=== PATIENT | male | born 1985 | race American Indian/Alaskan Native ===

== ENCOUNTER 2017-09-11 18:31 | Observation (INO) | payer OTHER ==
[2017-09-11 18:49] LABS: Basophils # (Auto) 0.1 K/mm3 (0.0-0.1); Basophils % (Auto) 0.7 % (0.0-1.8); Eosinophils # (Auto) 0.2 K/mm3 (0.0-0.4); Eosinophils % (Auto) 1.7 % (0.0-4.3); Hematocrit 47.9 % (35.5-45.6); Hemoglobin 16.1 gm/dl (11.8-15.2); Lymphocytes # (Auto) 4.2 K/mm3 (1.2-5.4); Lymphocytes % (Auto) 32.9 % (13.4-35.0); Mean Corpuscular HGB Conc 34 % (32-34); Mean Corpuscular Hemoglobin 30 pg (28-32); Mean Corpuscular Volume 88 fl (84-94); Monocytes # (Auto) 1.1 K/mm3 (0.0-0.8); Monocytes % (Auto) 8.6 % (0.0-7.3); Platelet Count 320 K/mm3 (140-440); Red Blood Count 5.45 M/mm3 (3.65-5.03); Red Cell Distribution Width 13.7 % (13.2-15.2)
--- NOTE | 2017-09-11 18:56 | Cat Scan Report ---
FINAL REPORT EXAM: CT HEAD/BRAIN WO CON HISTORY: suspected stroke TECHNIQUE: CT examination of the head without IV contrast PRIORS: None. FINDINGS: Right maxillary molar roots extend into the alveolar recess of the right maxillary sinus the paranasal sinuses are otherwise clear as are the mastoid air cells and middle ear cavities. Oblique patient position limits the examination. No acute air-fluid level visualized in the included air-filled sinuses. Bone windows demonstrate no acute fracture. The brain is without mass, mass effect, hemorrhage, or acute infarct. There is no extra-axial intracranial bleed, brain bleed, or midline shift. The ventricles and sulci are age-appropriate. IMPRESSION: No acute CVA, intracranial bleed, or brain mass
--- NOTE | 2017-09-11 18:57 | Emergency Department Report ---
- General Stated complaint: NEURO SYMPTOMS Time Seen by Provider: 09/11/17 18:38 Source: patient, family - History of Present Illness Initial comments: 32-year-old male presents to ED after 45 minutes of left-sided weakness and difficulty with speech, glucose was 200 on arrival stat head CT read as no acute process per radiology, here for eval new onset left and poss r side weakness w/ slurred speech. MD Complaint: focal weakness -: Sudden Severity: mild, moderate Quality: tingling, numbness Consistency: other (improving in ed) Associated Symptoms: denies: chest pain, confusion, dark stools, diaphoresis, dysuria, easy bruising, fever/chills, headaches, loss of appetite, nausea/ vomiting, myalgias, rash, shortness of breath, syncope - Related Data Home Medications Medication Instructions Recorded Confirmed Last Taken No Known Home Medications [No 05/30/13 05/30/13 Unknown Reported Home Medications] Allergies Allergy/AdvReac Type Severity Reaction Status Date / Time No Known Allergies Allergy Verified 05/30/13 05:19 ED Review of Systems ROS: Stated complaint: NEURO SYMPTOMS Other details as noted in HPI Comment: All other systems reviewed and negative Constitutional: denies: diaphoresis, fever, malaise Eyes: denies: eye pain, eye discharge, vision change ENT: denies: ear pain, throat pain, dental pain, hearing loss, epistaxis Respiratory: denies: cough, orthopnea, shortness of breath, SOB with exertion, SOB at rest, stridor Cardiovascular: denies: chest pain, palpitations, dyspnea on exertion, orthopnea , edema, syncope Gastrointestinal: denies: abdominal pain, nausea, vomiting, diarrhea, constipation, hematemesis, melena, hematochezia Genitourinary: denies: frequency, hematuria, discharge, testicular pain, testicular mass Musculoskeletal: denies: arthralgia, myalgia Skin: denies: pruritus Neurological: weakness, numbness, other (slurred speech and weakness). denies: vertigo Psychiatric: denies: anxiety, depression, auditory hallucinations, visual hallucinations, homicidal thoughts ED Past Medical Hx - Past Medical History Hx Hypertension: No Hx Seizures: No Hx Kidney Stones: Yes Hx Asthma: No - Social History Smoking Status: Current Every Day Smoker - Medications Home Medications: Home Medications Medication Instructions Recorded Confirmed Last Taken Type No Known Home Medications [No 05/30/13 05/30/13 Unknown History Reported Home Medications] ED Physical Exam - General Limitations: Other (slurred speech) General appearance: alert - Head Head exam: Present: atraumatic, normocephalic - Eye Eye exam: Present: normal appearance, PERRL, EOMI - ENT ENT exam: Present: normal exam, normal orophraynx - Neck Neck exam: Present: normal inspection. Absent: tenderness, meningismus - Respiratory Respiratory exam: Present: normal lung sounds bilaterally. Absent: respiratory distress, wheezes, rales, rhonchi, stridor, accessory muscle use, prolonged expiratory - Cardiovascular Cardiovascular Exam: Present: normal rhythm, tachycardia, normal heart sounds. Absent: systolic murmur, diastolic murmur, rubs, gallop - GI/Abdominal GI/Abdominal exam: Present: soft. Absent: distended, tenderness, guarding, rebound, rigid, mass, bruit, pulsatile mass - Extremities Exam Extremities exam: Present: normal inspection. Absent: normal capillary refill, pedal edema, joint swelling, calf tenderness - Back Exam Back exam: Present: normal inspection. Absent: CVA tenderness (R), CVA tenderness (L), muscle spasm, paraspinal tenderness, vertebral tenderness - Neurological Exam Neurological exam: Present: alert, motor sensory deficit, other (slurred speech left greater than right upper extremity weakness) - Psychiatric Psychiatric exam: Present: normal affect, anxious. Absent: manic, homicidal ideation, suicidal ideation - Assessment Assessment Interval: Baseline - Level of Consciousness 1a. Level of Consciousness: alert - LOC Questions 1b. LOC Questions: answers no questions correctly - LOC Command 1c. LOC Commands: performs 1 task correctly - Best Gaze 2. Best Gaze: normal - Visual 3. Visual: no visual loss - Facial Palsy 4. Facial Palsy: minor paralysis - Motor Arm 5b. Motor Arm Right: no drift 5a. Motor Arm Left: drift - Motor Leg 6a. Motor Leg Left: some gravity effort 6b. Motor Leg Right: no drift - Limb Ataxia 7. Limb Ataxia: absent - Sensory 8. Sensory: mild/moderate sensory loss - Best Language 9. Best Language: no aphasia - Dysarthria 10. Dysarthria: mild/moderate dysarthria - Extinction and Inattention 11. Extinction/Inattention: visual/tactile inattention - Scoring Total Score: 10 Stroke Severity: Moderate Stroke ED Course Vital Signs 09/11/17 09/11/17 19:10 19:30 Temperature 99.1 F Pulse Rate 125 H Respiratory 18 Rate Blood Pressure 133/76 [Left] O2 Sat by Pulse 98 Oximetry - Reevaluation(s) Reevaluation #1: 09/11/17 19:33 Case was discussed with on-call neurologist Dr. Deshpande who states patient does seem to have improving deficits possibly bilateral he is recommending TIA workup however he is also recommending CTA angiogram to eval for brainstem tia , doesn't rec tpa at this time given improved symptoms, he did examine pt via video and d/w him the case adn rec for management. 09/11/17 23:00 ED Medical Decision Making - Lab Data Result diagrams: 09/11/17 18:41 09/11/17 18:41 - EKG Data -: EKG Interpreted by Me EKG shows normal: sinus rhythm Rate: tachycardia - EKG Data Interpretation: nonspecific ST-T wave yanira - Radiology Data Radiology results: report reviewed CT brain no acute process - Medical Decision Making Case discussed discussed with Dr. Hebert Rueda for admit on rec of dr deshpande of neuro who rec eval for tia work up, sx are improved in ed, but will need further eval tia and poss brainstem tia, cta is pending, no tpa at [place] time given improving deficits per dr deshpande, but pt for admit to hospitalist service. Critical Care Time: Yes Critical care time in (mins) excluding proc time.: 30 Critical care attestation.: If time is entered above; I have spent that time in minutes in the direct care of this critically ill patient, excluding procedure time. ED Disposition Clinical Impression: Deficit in communication due to slurred speech, Weakness, TIA (transient ischemic attack) Disposition: DC-09 OP ADMIT IP TO THIS HOSP Is pt being admited?: Yes Condition: Stable Time of Disposition: 23:04
[2017-09-11 19:05] LABS: INR 0.88 (0.87-1.13)
[2017-09-11 19:06] LABS: Partial Thromboplastin Time 31.2 Sec. (24.2-36.6)
[2017-09-11 19:12] LABS: Alanine Aminotransferase 29 units/L (7-56); Albumin 4.1 g/dL (3.9-5); BUN/Creatinine Ratio 11; Blood Urea Nitrogen 11 mg/dL (9-20); Calcium 9.5 mg/dL (8.4-10.2); Hemolysis Index 11
[2017-09-12] MEDS ORDERED: NACL ONE (00:35)
--- NOTE | 2017-09-12 01:47 | Cat Scan Report ---
FINAL REPORT PROCEDURE: CT ANGIO HEAD TECHNIQUE: Computerized tomographic angiography of the head was performed after the IV injection of iodinated nonionic contrast including image processing. The image data was postprocessed using 2-dimensional multiplanar reformatted (MPR) and 3-dimensional (MIP and/or volume rendered) techniques. HISTORY: weakness COMPARISON: No prior studies are available for comparison. FINDINGS: Cerebrum: No evidence of hemorrhage, acute ischemia or mass. Cerebellum: No evidence of hemorrhage, acute ischemia or mass. Subarachnoid spaces and ventricles: Normal. Intracranial vessels: Carotid siphon: Normal. Anterior cerebral: Normal. Middle cerebral: Normal. Posterior cerebral:Normal. Vertebral arteries including basilar: Normal. Aneurysms: None. Dural sinuses: Normal. IMPRESSION: Normal Examination.
[2017-09-12] MEDS ORDERED: ZOFRAN IV PRN (02:09)
[2017-09-12] MEDS ORDERED: APRESOLINE IV PRN (02:09)
[2017-09-12] MEDS ORDERED: PROVENTIL IH PRN (02:09)
[2017-09-12] MEDS ORDERED: PERCOCET 5/325 PO PRN (02:09)
[2017-09-12] MEDS ORDERED: DULCOLAX PR PRN (02:09)
[2017-09-12] MEDS ORDERED: D50W (25GM) Syringe IV PRN (02:09)
[2017-09-12] MEDS ORDERED: SODIUM CHLORIDE FLUSH SYRINGE 10 ML IV PRN (02:09)
[2017-09-12] MEDS ORDERED: MILK OF MAGNESIA PO PRN (02:09)
[2017-09-12] MEDS ORDERED: TYLENOL PO PRN (02:09)
[2017-09-12] MEDS ORDERED: AMBIEN PO PRN (02:09)
[2017-09-12] MEDS ORDERED: MORPHINE IV PRN (02:31)
--- NOTE | 2017-09-12 02:31 | History and Physical Report ---
History of Present Illness Date of examination: 09/12/17 Chief complaint: Left-sided and face tingling and numbness and weakness, confusion and slurred speech History of present illness: 32-year-old male presents to ED after 45 minutes of left-sided weakness and difficulty with speech, glucose was 200 on arrival stat head CT read as no acute process per radiology, here for eval new onset left and poss r side weakness w/ slurred speech. Past History Past Medical History: diabetes, hypertension Past Surgical History: No surgical history Social history: Lives alone, smoking, full code Family history: no significant family history Medications and Allergies Allergies Allergy/AdvReac Type Severity Reaction Status Date / Time No Known Allergies Allergy Verified 05/30/13 05:19 Home Medications Medication Instructions Recorded Confirmed Last Taken Type No Known Home Medications [No 05/30/13 05/30/13 Unknown History Reported Home Medications] Active Meds: Active Medications Acetaminophen (Tylenol) 650 mg PO Q4H PRN PRN Reason: Pain MILD(1-3)/Fever >100.5/LEGER Albuterol (Proventil) 2.5 mg IH Q4HRT PRN PRN Reason: Shortness Of Breath Aspirin (Aspirin) 325 mg PO QDAY SANDRA Bisacodyl (Dulcolax) 10 mg CO QDAY PRN PRN Reason: Constipation unrelieved by MOM Dextrose (D50w (25gm) Syringe) 50 ml IV PRN PRN PRN Reason: Hypoglycemia Enoxaparin Sodium (Lovenox) 40 mg SUB-Q QDAY SANDRA Famotidine (Pepcid) 20 mg PO BID SANDRA Hydralazine HCl (Apresoline) 10 mg IV Q6H PRN PRN Reason: Blood Pressure Sodium Chloride (Nacl 0.45% 1000 Ml) 1,000 mls @ 125 mls/hr IV DIRECT SANDRA Insulin Aspart (Novolog) 0 units SUB-Q ACHS SANDRA PRN Reason: Protocol Magnesium Hydroxide (Milk Of Magnesia) 30 ml PO Q4H PRN PRN Reason: Constipation Morphine Sulfate (Morphine) 2 mg IV Q4H PRN PRN Reason: Pain, Moderate (4-6) Ondansetron HCl (Zofran) 4 mg IV Q8H PRN PRN Reason: N/V unrelieved by Reglan Oxycodone/Acetaminophen (Percocet 5/325) 1 tab PO Q6H PRN PRN Reason: Pain, Moderate (4-6) Potassium Chloride (K-Dur) 20 meq PO QDAY SANDRA Sodium Chloride (Sodium Chloride Flush Syringe 10 Ml) 10 ml INJ PRN PRN PRN Reason: LINE FLUSH Zolpidem Tartrate (Ambien) 5 mg PO QHS PRN PRN Reason: Insomnia Review of Systems All systems: negative Exam - Physical Exam Narrative exam: General: the patient is awake alert oriented to time place and person. no evidence of acute distress HEENT: Head is atraumatic normocephalic,. Pupils equal round reactive to light and accommodation, extraocular movements intact. Oral mucosa moist. Oropharynx clear. No pharyngeal erythema or tonsillar exudate. Neck: Supple no JVD no thyromegaly or lymphadenopathy. Heart: Regular rate and rhythm no murmurs or gallops. S1 and S2 normal. PMI not displaced. Lungs: Clear to auscultation bilaterally. No rales rhonchi wheezing. Nonlabored breathing. Normal chest wall expansion. Abdomen: Soft, nondistended, and nontender. Normoactive bowel sounds. No hepatosplenomegaly. No abdominal masses or bruit appreciated. Extremities: No cyanosis/clubbing/ edema. Musculoskeletal: Normal range of movement all joints. No obvious deformity or tenderness to palpation. Normal muscle tone. Back: Normal alignment. No step-off. No midline or paraspinal tenderness. No CVA tenderness. Neurological: Grossly intact and nonfocal. No cerebellar signs. Cranial nerves II-12 grossly intact. Strength 5 out of 5 all 4 extremities. Sensations grossly intact. Skin: Warm and dry no rashes or bruises. Psychiatric: Normal mood. Appropriate affect and good insight and judgment. Vascular system: No lymphadenopathy. Distal pulses 2+ bilaterally. - Constitutional Vitals: Temp Pulse Resp BP Pulse Ox 99.1 F 125 H 18 133/76 98 09/11/17 19:10 09/11/17 19:30 09/11/17 19:30 09/11/17 19:30 09/11/17 19:30 Results - Labs CBC & Chem 7: 09/11/17 18:41 09/11/17 18:41 Labs: Laboratory Last Values WBC 12.7 K/mm3 (4.5-11.0) H 09/11/17 18:41 RBC 5.45 M/mm3 (3.65-5.03) H 09/11/17 18:41 Hgb 16.1 gm/dl (11.8-15.2) H 09/11/17 18:41 Hct 47.9 % (35.5-45.6) H 09/11/17 18:41 MCV 88 fl (84-94) 09/11/17 18:41 MCH 30 pg (28-32) 09/11/17 18:41 MCHC 34 % (32-34) 09/11/17 18:41 RDW 13.7 % (13.2-15.2) 09/11/17 18:41 Plt Count 320 K/mm3 (140-440) 09/11/17 18:41 Lymph % (Auto) 32.9 % (13.4-35.0) 09/11/17 18:41 [place] % (Auto) 8.6 % (0.0-7.3) H 09/11/17 18:41 Eos % (Auto) 1.7 % (0.0-4.3) 09/11/17 18:41 Baso % (Auto) 0.7 % (0.0-1.8) 09/11/17 18:41 Lymph # 4.2 K/mm3 (1.2-5.4) 09/11/17 18:41 [place] # 1.1 K/mm3 (0.0-0.8) H 09/11/17 18:41 Eos # 0.2 K/mm3 (0.0-0.4) 09/11/17 18:41 Baso # 0.1 K/mm3 (0.0-0.1) 09/11/17 18:41 Seg Neutrophils % 56.1 % (40.0-70.0) 09/11/17 18:41 Seg Neutrophils # 7.1 K/mm3 (1.8-7.7) 09/11/17 18:41 PT 12.4 Sec. (12.2-14.9) 09/11/17 18:41 INR 0.88 (0.87-1.13) 09/11/17 18:41 APTT 31.2 Sec. (24.2-36.6) 09/11/17 18:41 Thrombin Time 16.0 Sec. (15.1-19.6) 09/11/17 18:41 Sodium 136 mmol/L (137-145) L 09/11/17 18:41 Potassium 3.5 mmol/L (3.6-5.0) L 09/11/17 18:41 Chloride 94.7 mmol/L (98-107) L 09/11/17 18:41 Carbon Dioxide 22 mmol/L (22-30) 09/11/17 18:41 Anion Gap 23 mmol/L 09/11/17 18:41 BUN 11 mg/dL (9-20) 09/11/17 18:41 Creatinine 1.0 mg/dL (0.8-1.5) 09/11/17 18:41 Estimated GFR > 60 ml/min 09/11/17 18:41 BUN/Creatinine Ratio 11 % 09/11/17 18:41 Glucose 251 mg/dL (75-100) H 09/11/17 18:41 POC Glucose 88 (70-105) 09/11/17 23:44 Calcium 9.5 mg/dL (8.4-10.2) 09/11/17 18:41 Total Bilirubin 0.30 mg/dL (0.1-1.2) 09/11/17 18:41 AST 19 units/L (5-40) 09/11/17 18:41 ALT 29 units/L (7-56) 09/11/17 18:41 Alkaline Phosphatase 83 units/L (35-129) 09/11/17 18:41 Troponin T < 0.010 ng/mL (0.00-0.029) 09/11/17 18:41 Total Protein 7.7 g/dL (6.3-8.2) 09/11/17 18:41 Albumin 4.1 g/dL (3.9-5) 09/11/17 18:41 Albumin/Globulin Ratio 1.1 % 09/11/17 18:41 Plasma/Serum Alcohol < 0.01 % (0-0.07) 09/11/17 18:41 - Imaging and Cardiology Imaging and Cardiology: EKG normal sinus rhythm negative for acute ischemia or other arrhythmia CT head negative for acute intracranial process\ CTA head and neck - negative showing no significant stenosis Assessment and Plan Assessment and plan: Assessment and plan - * Left-sided tingling numbness and weakness - most likely TIA but rule out CVA * Hypertension * Diabetes mellitus type 2 uncontrolled * Leukocytosis with low-grade fever no obvious source of infection suspected or found * Tobacco abuse * Hypokalemia Plan - Admitted to medical floor with telemetry for 24-hour observation TIA workup which includes MRI and carotid ultrasound and echocardiogram follow- up results further management pending results Urine culture and sensitivity and CT chest to rule out underlying pneumonia bronchitis and also for colon cancer screening patient smoking more than 2 packs a day for a long time Hold off on empiric antibiotics at this point Monitor CBC and electrolytes replace electrolytes when necessary as per protocol DVT GI prophylaxis as ordered monitor and follow the patient closely When necessary hydralazine fall April blood pressure control Visit hemoglobin A1c and monitor blood sugars with Accu-Cheks every before meals daily at bedtime and cover with sliding scale insulin Patient currently not on any antihypertensive medication Monitor vital signs closely VTE prophylaxis?: Chemical, Mechanical Plan of care discussed with patient/family: Yes
--- NOTE | 2017-09-12 03:19 | Cat Scan Report ---
FINAL REPORT PROCEDURE: CT ANGIO NECK TECHNIQUE: Computerized tomographic angiography of the neck was performed after the IV injection of iodinated nonionic contrast including image processing. The image data was postprocessed using 2-dimensional multiplanar reformatted (MPR) and 3-dimensional (MIP and/or volume rendered) techniques. HISTORY: weakness COMPARISON: No prior studies are available for comparison. Note: Assessment of carotid artery stenosis is based on measurement of the distal internal carotid artery diameter as the denominator for stenosis calculations and the [place] Symptomatic Carotid Endarterectomy Trial (NASCET) stenosis criteria . CPT 3100F FINDINGS: Sinuses: Normal . Non vascular cervical structures: No significant abnormality . Aortic arch: Normal . Right carotid artery: Normal . Left carotid artery: Normal . Vertebral arteries: Normal . IMPRESSION: Normal Examination
[2017-09-12 04:29] LABS: Hematocrit 44.3 % (35.5-45.6); Hemoglobin 14.8 gm/dl (11.8-15.2); Mean Corpuscular HGB Conc 33 % (32-34); Mean Corpuscular Hemoglobin 30 pg (28-32); Mean Corpuscular Volume 89 fl (84-94); Platelet Count 316 K/mm3 (140-440); Red Blood Count 5.01 M/mm3 (3.65-5.03); Red Cell Distribution Width 13.6 % (13.2-15.2)
[2017-09-12 04:57] LABS: Alanine Aminotransferase 28 units/L (7-56); BUN/Creatinine Ratio 12; Blood Urea Nitrogen 11 mg/dL (9-20); Calcium 8.8 mg/dL (8.4-10.2); Hemolysis Index 15
--- NOTE | 2017-09-12 05:08 | Cat Scan Report ---
FINAL REPORT PROCEDURE: CT CHEST WO CON TECHNIQUE: Computerized axial tomography of the chest was performed without contrast material. This study is performed without intravenous contrast and the sensitivity for pathology, including neoplasms, adenopathy, abscess, pulmonary embolism and aortic dissection, is reduced. HISTORY: r/o PNA COMPARISON: No prior studies are available for comparison. TECHNICAL QUALITY: Satisfactory. FINDINGS: Heart and pericardium: Normal. Thoracic aorta: Normal. Pulmonary vasculature: Normal. Lymph nodes: No enlarged thoracic lymph nodes. Lungs: The lungs are clear and expanded. There are no infiltrates, effusions or pneumothoraces.. Pleural space: No effusion, thickening, or pneumothorax. Musculoskeletal structures: No significant abnormality. Upper abdominal structures: No significant abnormality. IMPRESSION: There is no acute cardiopulmonary abnormality. There is no evidence of active pneumonitis..
[2017-09-12 06:45] LABS: Band Neutrophils # (Manual) 2.2 K/mm3; Basophils % (Manual) 0 % (0.0-1.8); Total Cells Counted 100
[2017-09-12 06:46] LABS: Anisocytosis 1+
[2017-09-12] MEDS: NOVOLOG SUB-Q SCH ×4 (07:44→21:30)
--- NOTE | 2017-09-12 09:05 | Event Note ---
Date: 09/12/17 Pt who was admitted today for possible TIA with left sided weak said the the weakness has resolved and strength has returned to normal. [facility] head and neck was normal. Will follow up with other lab studies and management plan for possible TIA.
[2017-09-12] MEDS: PEPCID PO SCH ×2 (11:44→21:29)
[2017-09-12] MEDS: ASPIRIN PO SCH (11:44)
[2017-09-12] MEDS: K-DUR PO SCH (11:44)
[2017-09-12] MEDS: LOVENOX SUB-Q SCH (11:44)
--- NOTE | 2017-09-12 15:39 | Magnetic Resonance Report ---
FINAL REPORT EXAM: MR BRAIN WO CON HISTORY: stroke , weakness TECHNIQUE: Multiplanar multisequence brain MR imaging without IV contrast. PRIORS: Head CT 09/11/2017 and head CTA 09/12/2017 FINDINGS: Slight prominence of fat in the normal size pineal gland is likely developmental variation. The included air filled sinuses contain no acute fluid level. The brain is without mass, mass effect, hemorrhage, or acute infarct. There is no midline shift or brain edema. There are no areas of brain restricted diffusion to suggest an acute ischemic infarct. The ventricles and sulci are age-appropriate. IMPRESSION: No acute CVA or brain mass
[2017-09-12] MEDS: NACL 0.45% 1000 ML 1,000 ML IV SCH (16:37)
[2017-09-12 17:46] LABS: Bilirubin,Urine NEG (Negative); Blood,Urine NEG (Negative); Color,Urine Yellow (Yellow); Nitrite,Urine NEG (Negative); Protein,Urine <15 mg/dL mg/dL (Negative); Urobilinogen,Urine < 2.0 mg/dL (<2.0)
[2017-09-12 17:53] LABS: Benzodiazepines Screen,Urine PRESUMPTIVE NEGATIVE; Cannabinoid Screen,Urine PRESUMPTIVE NEGATIVE; Methadone Screen,Urine PRESUMPTIVE NEGATIVE; Opiate Screen,Urine PRESUMPTIVE NEGATIVE
[2017-09-12 17:54] LABS: Amphetamine Screen,Urine PRESUMPTIVE POSITIVE; Cocaine Screen,Urine PRESUMPTIVE POSITIVE
[2017-09-13] MEDS: NACL 0.45% 1000 ML 1,000 ML IV SCH (04:18)
[2017-09-13 06:14] LABS: Hematocrit 41.9 % (35.5-45.6); Hemoglobin 13.8 gm/dl (11.8-15.2); Mean Corpuscular HGB Conc 33 % (32-34); Mean Corpuscular Hemoglobin 29 pg (28-32); Mean Corpuscular Volume 89 fl (84-94); Platelet Count 322 K/mm3 (140-440); Red Blood Count 4.73 M/mm3 (3.65-5.03); Red Cell Distribution Width 13.5 % (13.2-15.2)
[2017-09-13 06:34] LABS: Alanine Aminotransferase 40 units/L (7-56); BUN/Creatinine Ratio 17; Blood Urea Nitrogen 12 mg/dL (9-20); Calcium 8.6 mg/dL (8.4-10.2); Chol/HDL Ratio 7.35 %; HDL Cholesterol 17 mg/dL (40-59); Hemolysis Index 23; LDL Cholesterol,Direct 68 mg/dL (50-130)
[2017-09-13 06:59] LABS: Basophils % (Manual) 0 % (0.0-1.8); Total Cells Counted 100
[2017-09-13 07:00] LABS: RBC Morphology Normal
[2017-09-13 07:45] VITALS: BP 111/55
[2017-09-13] MEDS: NOVOLOG SUB-Q SCH ×2 (08:00→16:19)
[2017-09-13] MEDS: ASPIRIN PO SCH (11:28)
[2017-09-13] MEDS: LOVENOX SUB-Q SCH (11:29)
[2017-09-13] MEDS: PEPCID PO SCH (11:29)
[2017-09-13] MEDS: K-DUR PO SCH (11:31)
--- NOTE | 2017-09-13 11:50 | Progress Note ---
Subjective Date of service: 09/13/17 Objective - Constitutional Vitals: Vital Signs - 12hr 09/13/17 09/13/17 09/13/17 00:05 04:52 05:16 Temperature 98.4 F 97.3 F L Pulse Rate 71 78 71 Respiratory 20 20 Rate Blood Pressure 117/74 111/55 O2 Sat by Pulse 95 98 Oximetry 09/13/17 10:00 Temperature Pulse Rate Respiratory Rate Blood Pressure O2 Sat by Pulse 98 Oximetry - Labs CBC & Chem 7: 09/13/17 05:46 09/13/17 05:46 Labs: Abnormal lab results 09/12/17 09/12/17 09/12/17 Range/Units 09:25 17:24 22:25 WBC (4.5-11.0) K/mm3 Lymphocytes % (Manual) (13.4-35.0) % Eosinophils % (Manual) (0.0-4.3) % Eosinophils # (Manual) (0.0-0.4) K/mm3 Creatinine (0.8-1.5) mg/dL Glucose (75-100) mg/dL POC Glucose 109 H 128 H (70-105) Hemoglobin A1c (4-6) % Triglycerides (2-149) mg/dL HDL Cholesterol (40-59) mg/dL Urine WBC (Auto) 7.0 H (0.0-6.0) /HPF 09/13/17 09/13/17 09/13/17 Range/Units 05:46 05:46 05:46 WBC 11.2 H (4.5-11.0) K/mm3 Lymphocytes % (Manual) 43.0 H (13.4-35.0) % Eosinophils % (Manual) 6.0 H (0.0-4.3) % Eosinophils # (Manual) 0.7 H (0.0-0.4) K/mm3 Creatinine 0.7 L (0.8-1.5) mg/dL Glucose 132 H (75-100) mg/dL POC Glucose (70-105) Hemoglobin A1c 7.1 H (4-6) % Triglycerides 202 H (2-149) mg/dL HDL Cholesterol 17 L (40-59) mg/dL Urine WBC (Auto) (0.0-6.0) /HPF 09/13/17 Range/Units 07:55 WBC (4.5-11.0) K/mm3 Lymphocytes % (Manual) (13.4-35.0) % Eosinophils % (Manual) (0.0-4.3) % Eosinophils # (Manual) (0.0-0.4) K/mm3 Creatinine (0.8-1.5) mg/dL Glucose (75-100) mg/dL POC Glucose 119 H (70-105) Hemoglobin A1c (4-6) % Triglycerides (2-149) mg/dL HDL Cholesterol (40-59) mg/dL Urine WBC (Auto) (0.0-6.0) /HPF
--- NOTE | 2017-09-13 16:02 | Discharge Summary ---
Providers - Providers Date of Admission: 09/12/17 02:09 Date of discharge: 09/13/17 Attending physician: SYDNEE CINTRON none Primary care physician: [employer] Hospitalization Reason for admission: TIA, uncontroled diabetes mellitus Condition: Stable Pertinent studies: CT head that was normal, CTA of the head, Neck and chest that were normal MRI of the brain charanjit was normal Procedures: none Hospital course: 32-year-old male presents to ED after 45 minutes of left-sided weakness and difficulty with speech, glucose was 200 on arrival stat head CT read as no acute process per radiology, here for eval new onset left and poss r side weakness w/ slurred speech. Patient was commenced on oxygen, aspirin, statins and nuero check on admission. Head on admission was normal. CTangiography of the head neck and chest were unremarkable. MRI of the brain was normal. Weakness of the left upper and lower extremity progressively was resolved. Patient was optimized assessment scale insulin. Patient was advised to quit tobacco use. His symptoms have resolved and MRI and CT scan were normal. He therefore been discharged to f/u with his primary care physician as well as neurologist if symptoms persisted. This discharge plan was explained to the patient and his mother that was in the room during this discharge. Patient was counseled on consistent Carbiohydrate diet as well as tobacco cessation. Disposition: - TO HOME OR SELFCARE Time spent for discharge: 34 min Core Measure Documentation - Palliative Care Palliative Care/ Comfort Measures: Not Applicable - Core Measures Any of the following diagnoses?: none Exam - Physical Exam Narrative exam: Constitutional: Well-nourished well-developed. In no distress Head: Normocephalic atraumatic Eyes: Pupils are equal round and reactive to light Nose: No enlarged turbinates, no septal deviation. Mouth: Moist mucous membranes. Neck: Supple no thyromegaly. No bruit. No JVD Heart: Regular rate and rhythm, S1-S2 abnormal. No rubs murmurs or gallop Lungs: Clear to auscultation bilaterally no rales or rhonchi Abdomen: Soft, nontender. Bowel sound are present. Extremities: No edema no cyanosis and no clubbing. Neuro: Alert oriented Oriented x3. No focal sensory or motor deficit. Skin: No rashes no hyperemic spots Psychiatry: Euthymic. Calm. - Constitutional Vitals: Temp Pulse Resp BP Pulse Ox 97.3 F L 71 20 111/55 98 09/13/17 04:52 09/13/17 05:16 09/13/17 04:52 09/13/17 04:52 09/13/17 10:00 Plan Activity: advance as tolerated Weight Bearing Status: Weight Bear as Tolerated Diet: diabetic Follow up with: PRIMARY CARE, [Primary Care Provider] - 3-5 Days Prescriptions: Aspirin [Aspirin TAB] 325 mg PO QDAY #30 tablet Glimepiride [Amaryl] 4 mg PO QAM #60 tablet Lisinopril 20 mg PO DAILY #30 Lovastatin [Altoprev] 20 mg PO QPM #30 tab.er.24h metFORMIN 1,000 mg PO BID #60
--- NOTE | 2017-09-16 08:28 | Vascular Lab Report ---
CAROTID DUPLEX STUDY: RIGHT PSVEDV CCA PROX: CCA DIST: ICA PROX: ICA MID: ICA DIST: ECA: VERT: LEFT PSVEDV CCA PROX: CCA DIST: ICA PROX: ICA MID: ICA DIST: ECA: VERT: REASON FOR EXAM: Stroke. COMMENTS ON THE RIGHT: Doppler frequency analysis is consistent with 1 to 15 percent diameter reduction of the internal carotid artery. No plaque is seen. The common carotid artery is patent. The external carotid artery is patent. The vertebral artery has antegrade flow. COMMENTS ON THE LEFT: Doppler frequency analysis is consistent with 1 to 15 percent diameter reduction of the internal carotid artery. No plaque is seen. The common carotid artery is patent. The external carotid artery is patent. The vertebral artery has antegrade flow. IMPRESSION: Normal carotid artery study.
== END 2017-09-13 17:05 | disposition home or self-care (01) ==
LOC: ED 18:31 → 3A 09-12 02:09 → 4A 09-12 07:03
PROVIDERS: ADMIT Internal Medicine Geriatric Medicine; ATTEND Family Medicine
DX: R20.2 Paresthesia of skin (principal); R20.0 Anesthesia of skin; E11.65 Type 2 diabetes mellitus with hyperglycemia; D72.829 Elevated white blood cell count, unspecified; R53.1 Weakness; I10 Essential (primary) hypertension; E87.6 Hypokalemia; F17.200 Nicotine dependence, unspecified, uncomplicated
CPT/HCPCS: 36415; 70450; 70496; 70498; 70551; 71250; 80053; 80061; 80307; 81001; 82962; 83036; 83735; 84100; 84484; 85007; 85025; 85610; 85670; 85730; 87086; 93005; 93010; 93306; 93880; 96360; 96361; 96372; 99291; G0378; G0480; J1650; Q9967; 80320

== ENCOUNTER 2019-09-17 18:00 | Emergency (ER) | payer SELFPAY ==
--- NOTE | 2019-09-17 20:33 | Event Note ---
ED Screening Note ED Screening Note: pt presents with flu like symptoms that began this morning states he has headache, generalized body aches +dry cough no fever states he had a couple of episodes of diarrhea no n/v no abd pain no sore throat no ear pain PMHx DM -metformin states his sugar has been normal, last check was 147 per pt no allergies to meds
[2019-09-17 20:34] VITALS: BP 157/87
--- NOTE | 2019-09-17 20:36 | Emergency Department Report ---
Chief Complaint: Upper Respiratory Infection Stated Complaint: FLU SX Time Seen by Provider: 09/17/19 20:28 - HPI History of Present Illness: pt presents with flu like symptoms that began this morning states he has headache, generalized body aches +dry cough no fever states he had a couple of episodes of diarrhea no n/v no abd pain no sore throat no ear pain no SOB no CP no productive cough PMHx DM -metformin states his sugar has been normal, last check was 147 per pt no allergies to meds initial vitals with mildly elevated HR which improved to normal on repeat pt is afebrile on exam: Non toxic appearing, no acute distress atraumatic, normocephalic normal appearance of the eyes, PERRL, EOMI, no periorbital edema or ecchymosis moist mucus membranes normal oropharynx, bilateral cerumen impactions, no sinus ttp regular heart rate and rhythm, no gallops, no rubs, no murmurs breath sounds are clear bilaterally, no w/r/r A&O x4, no focal neuro deficit skin is warm, dry, intact Examination consistent with viral illness No clinical signs or symptoms of pneumonia Patient is not febrile, less likely to be flu Patient has no history of being immune compromised, no lung disease Discussed supportive care and symptomatic treatment and the importance of oral rehydration with patient Patient referred to a primary care physician for reexamination Medical screening examination performed and there is no threat to life or limb at this time Discussed strict return precautions MSE screening note: Focused history and physical exam performed. ED Disposition for MSE Clinical Impression: Viral illness Disposition: MED SCREENING EXAM-LEFT Is pt being admited?: No Does the pt Need Aspirin: No Condition: Stable Instructions: Viral Syndrome (ED) Additional Instructions: please increase your fluid intake. may taken tylenol or ibuprofen as needed for pain. may use mucinex or theraflu over the counter. get plenty of rest. follow up with a primary care doctor in the next 3 days for reexamination. return to the emergency room for any new or worsening symptoms. Referrals: MORGAN BROUSSARD MD [Staff Physician] - 2-3 Days [facility] [Outside] - 2-3 Days [facility] [Outside] - 2-3 Days Forms: Work/School Release Form(ED) Time of Disposition: 20:34 Print Language: VENEZUELAN
== END 2019-09-17 20:49 | disposition left against medical advice (07) ==
LOC: ED 18:00
DX: B34.9 Viral infection, unspecified (principal)
CPT/HCPCS: 99282

== ENCOUNTER 2020-09-28 09:37 | Emergency (ER) | payer SELFPAY ==
--- NOTE | 2020-09-28 10:09 | Emergency Department Report ---
Blank Doc - Documentation Documentation: 35-year-old male that presents with increased urination, thirst with nausea vo miting. 1- This initial assessment/diagnostic orders/clinical plan/ treatment(s) is/are subject to change based on pt's health status, clinical progression and re- assessment by fellow clinical providers in the ED. Further treatment and workup at subsequent clinical provers discretion. Patient/guardians urged not to elope from ED as their condition may be serious if not clinically assessed and man aged. 2-labs 3-UA
[2020-09-28 10:29] LABS: Hematocrit 44.9 % (35.5-45.6); Hemoglobin 15.3 gm/dl (11.8-15.2); Mean Corpuscular HGB Conc 34 % (32-34); Mean Corpuscular Volume 91 fl (84-94); Platelet Count 277 K/mm3 (140-440); Red Blood Count 4.97 M/mm3 (3.65-5.03); Red Cell Distribution Width 13.3 % (13.2-15.2)
[2020-09-28 10:54] LABS: BUN/Creatinine Ratio 11; Blood Urea Nitrogen 9 mg/dL (9-20); Calcium 9.1 mg/dL (8.4-10.2); Hemolysis Index 9
[2020-09-28 10:56] LABS: Alanine Aminotransferase 41 units/L (7-56); Albumin 4.2 g/dL (3.9-5)
[2020-09-28 11:13] LABS: Bilirubin,Direct < 0.2 mg/dL (0-0.2)
[2020-09-28] MEDS ORDERED: SODIUM CHLORIDE 0.9% 1000 ML 1,000 ML IV ONE (11:45)
[2020-09-28] MEDS ORDERED: ONDANSETRON 4 MG/2 ML INJ IV ONE (11:45)
--- NOTE | 2020-09-28 11:50 | Emergency Department Report ---
HPI - General Chief Complaint: Nausea/Vomiting/Diarrhea Time Seen by Provider: 09/28/20 09:55 - HPI HPI: Room 32 The patient is a 35-year-old male present with a chief complaint of nausea vomiting diarrhea. The patient states he got off work last night before going to bed he had eaten a "hot pocket" at 03: 00. The patient states he awakened this morning at 08: 3 0 with cramping abdominal pain nausea vomiting diarrhea. Patient denies history of fever. Patient denies any known sick contacts. ED Past Medical Hx - Past Medical History Previous Medical History?: Yes Hx Diabetes: Yes Hx Kidney Stones: Yes - Surgical History Past Surgical History?: No - Family History Family history: no significant - Social History Smoking Status: Current Some Day Smoker (1 pack/day) Substance Use Type: None (Denies illicit drug use) - Medications Home Medications: Home Medications Medication Instructions Recorded Confirmed Last Taken Type Aspirin 325 mg PO QDAY #30 tablet 09/13/17 Unknown Rx Glimepiride [Amaryl] 4 mg PO QAM #60 tablet 09/13/17 Unknown Rx Lisinopril 20 mg PO DAILY #30 09/13/17 Unknown Rx Lovastatin [Altoprev] 20 mg PO QPM #30 tab.er.24h 09/13/17 Unknown Rx metFORMIN 1,000 mg PO BID #60 09/13/17 Unknown Rx Famotidine [Pepcid] 20 mg PO BID #20 tablet 09/28/20 Unknown Rx Ondansetron [Zofran ODT TAB] 8 mg PO Q8HR #20 tab.rapdis 09/28/20 Unknown Rx traMADoL [Ultram] 50 mg PO Q6HR PRN #10 tablet 09/28/20 Unknown Rx ED Review of Systems ROS: Stated complaint: WEAK/VOMITING/CONSTANT URINE Other details as noted in HPI Constitutional: denies: fever Eyes: denies: eye pain ENT: denies: throat pain Respiratory: no symptoms reported Cardiovascular: denies: chest pain Endocrine: no symptoms reported Gastrointestinal: abdominal pain, nausea, vomiting, diarrhea Genitourinary: denies: dysuria Musculoskeletal: denies: back pain Neurological: denies: headache Physical Exam - Physical Exam Vital Signs: Vital Signs 09/28/20 09:47 Temperature 98.2 F Pulse Rate 84 Respiratory 18 Rate Blood Pressure 145/82 O2 Sat by Pulse 100 Oximetry Physical Exam: GENERAL: The patient is well-developed well-nourished male lying on stretcher not appearing to be in acute distress. [] HEENT: Normocephalic. Atraumatic. Extraocular motions are intact. Patient has moist mucous membranes. NECK: Supple. Trachea midline CHEST/LUNGS: Clear to auscultation. There is no respiratory distress noted. HEART/CARDIOVASCULAR: Regular. There is no tachycardia. There is no gallop rub or murmur. ABDOMEN: Abdomen is soft, with discomfort to palpation in the right upper quadrant and left upper quadrant. There is no rebound or guarding. Patient has normal bowel sounds. There is no abdominal distention. SKIN: There is no rash. There is no edema. There is no diaphoresis. NEURO: The patient is awake, alert, and oriented. The patient is cooperative. The patient has no focal neurologic deficits. The patient has normal speech MUSCULOSKELETAL: There is no evidence of acute injury. ED Course Vital Signs 09/28/20 09:47 Temperature 98.2 F Pulse Rate 84 Respiratory 18 Rate Blood Pressure 145/82 O2 Sat by Pulse 100 Oximetry ED Medical Decision Making - Lab Data Result diagrams: 09/28/20 10:14 09/28/20 10:14 Laboratory Tests 09/28/20 09/28/20 09/28/20 09:49 10:14 10:14 WBC 15.6 H RBC 4.97 Hgb 15.3 H Hct 44.9 MCV 91 MCH 31 MCHC 34 RDW 13.3 Plt Count 277 Lymph # (Auto) Lining Setter Add Manual Diff Complete Total Counted 100 Seg Neuts % (Manual) 47.0 Lymphocytes % (Manual) 45.0 H Monocytes % (Manual) 6.0 Eosinophils % (Manual) 2.0 Nucleated RBC % Not Reportable Seg Neutrophils # Man 7.3 Band Neutrophils # 0.0 Lymphocytes # (Manual) 7.0 H Abs React Lymphs (Man) 0.0 Monocytes # (Manual) 0.9 H Eosinophils # (Manual) 0.3 Basophils # (Manual) 0.0 Metamyelocytes # 0.0 Myelocytes # 0.0 Promyelocytes # 0.0 Blast Cells # 0.0 WBC Morphology Not Reportable Hypersegmented Neuts Not Reportable Hyposegmented Neuts Not Reportable Hypogranular Neuts Not Reportable Smudge Cells Not Reportable Toxic Granulation Not Reportable Toxic Vacuolation Not Reportable Dohle Bodies Not Reportable Pelger-Huet Anomaly Not Reportable Monik Rods Not Reportable Platelet Estimate Consistent w auto Clumped Platelets Not Reportable Plt Clumps, EDTA Not Reportable Large Platelets Not Reportable Giant Platelets Not Reportable Platelet Satelliting Not Reportable Plt Morphology Comment Not Reportable RBC Morphology Normal Dimorphic RBCs Not Reportable Polychromasia Not Reportable Hypochromasia Not Reportable Poikilocytosis Not Reportable Anisocytosis Not Reportable Microcytosis Not Reportable Macrocytosis Not Reportable Spherocytes Not Reportable Pappenheimer Bodies Not Reportable Sickle Cells Not Reportable Target Cells Not Reportable Tear Drop Cells Not Reportable Ovalocytes Not Reportable Helmet Cells Not Reportable [place] Bodies Not Reportable [place] Rings Not Reportable [place] Cells Not Reportable Bite Cells Not Reportable Crenated Cell Not Reportable Elliptocytes Not Reportable Acanthocytes (Spur) Not Reportable Rouleaux Not Reportable Hemoglobin C Crystals Not Reportable Schistocytes Not Reportable Malaria parasites Not Reportable Basil Bodies Not Reportable Hem Pathologist Commnt No VBG pH Sodium 134 L Potassium 3.8 Chloride 98.9 Carbon Dioxide 24 Anion Gap 15 BUN 9 Creatinine 0.8 Estimated GFR > 60 BUN/Creatinine Ratio 11 Glucose 264 H POC Glucose 206 H Calcium 9.1 Total Bilirubin Direct Bilirubin Indirect Bilirubin AST ALT Alkaline Phosphatase Total Protein Albumin Albumin/Globulin Ratio Lipase Urine Color Urine Turbidity Urine pH Ur Specific Gal[place] Urine Protein Urine Glucose (UA) Urine Ketones Urine Blood Urine Nitrite Urine Bilirubin Urine Urobilinogen Ur Leukocyte Esterase Urine WBC (Auto) Urine RBC (Auto) 09/28/20 09/28/20 09/28/20 10:14 10:14 10:14 WBC RBC Hgb Hct MCV MCH MCHC RDW Plt Count Lymph # (Auto) Add Manual Diff Total Counted Seg Neuts % (Manual) Lymphocytes % (Manual) Monocytes % (Manual) Eosinophils % (Manual) Nucleated RBC % Seg Neutrophils # Man Band Neutrophils # Lymphocytes # (Manual) Abs React Lymphs (Man) Monocytes # (Manual) Eosinophils # (Manual) Basophils # (Manual) Metamyelocytes # Myelocytes # Promyelocytes # Blast Cells # WBC Morphology Hypersegmented Neuts Hyposegmented Neuts Hypogranular Neuts Smudge Cells Toxic Granulation Toxic Vacuolation Dohle Bodies Pelger-Huet Anomaly Monik Rods Platelet Estimate Clumped Platelets Plt Clumps, EDTA Large Platelets Giant Platelets Platelet Satelliting Plt Morphology Comment RBC Morphology Dimorphic RBCs Polychromasia Hypochromasia Poikilocytosis Anisocytosis Microcytosis Macrocytosis Spherocytes Pappenheimer Bodies Sickle Cells Target Cells Tear Drop Cells Ovalocytes Helmet Cells [place] Bodies [place] Rings Evert Cells Bite Cells Crenated Cell Elliptocytes Acanthocytes (Spur) Rouleaux Hemoglobin C Crystals Schistocytes Malaria parasites Basil Bodies Hem Pathologist Commnt VBG pH 7.366 Sodium Potassium Chloride Carbon Dioxide Anion Gap BUN Creatinine Estimated GFR BUN/Creatinine Ratio Glucose POC Glucose Calcium Total Bilirubin 0.20 Direct Bilirubin < 0.2 Indirect Bilirubin 0.0 AST 21 ALT 41 Alkaline Phosphatase 95 Total Protein 6.9 Albumin 4.2 Albumin/Globulin Ratio 1.6 Lipase 19 Urine Color Urine Turbidity Urine pH Ur Specific [place] Urine Protein Urine Glucose (UA) Urine Ketones Urine Blood Urine Nitrite Urine Bilirubin Urine Urobilinogen Ur Leukocyte Esterase Urine WBC (Auto) Urine RBC (Auto) 09/28/20 13:40 WBC RBC Hgb Hct MCV MCH MCHC RDW Plt Count Lymph # (Auto) Add Manual Diff Total Counted Seg Neuts % (Manual) Lymphocytes % (Manual) Monocytes % (Manual) Eosinophils % (Manual) Nucleated RBC % Seg Neutrophils # Man Band Neutrophils # Lymphocytes # (Manual) Abs React Lymphs (Man) Monocytes # (Manual) Eosinophils # (Manual) Basophils # (Manual) Metamyelocytes # Myelocytes # Promyelocytes # Blast Cells # WBC Morphology Hypersegmented Neuts Hyposegmented Neuts Hypogranular Neuts Smudge Cells Toxic Granulation Toxic Vacuolation Dohle Bodies Pelger-Huet Anomaly Monik Rods Platelet Estimate Clumped Platelets Plt Clumps, EDTA Large Platelets Giant Platelets Platelet Satelliting Plt Morphology Comment RBC Morphology Dimorphic RBCs Polychromasia Hypochromasia Poikilocytosis Anisocytosis Microcytosis Macrocytosis Spherocytes Pappenheimer Bodies Sickle Cells Target Cells Tear Drop Cells Ovalocytes Helmet Cells [place] Bodies [place] Rings Evert Cells Bite Cells Crenated Cell Elliptocytes Acanthocytes (Spur) Rouleaux Hemoglobin C Crystals Schistocytes Malaria parasites Basil Bodies Hem Pathologist Commnt VBG pH Sodium Potassium Chloride Carbon Dioxide Anion Gap BUN Creatinine Estimated GFR BUN/Creatinine Ratio Glucose POC Glucose Calcium Total Bilirubin Direct Bilirubin Indirect Bilirubin AST ALT Alkaline Phosphatase Total Protein Albumin Albumin/Globulin Ratio Lipase Urine Color Colorless Urine Turbidity Clear Urine pH 6.0 Ur Specific [place] 1.013 Urine Protein <15 mg/dl Urine Glucose (UA) 150 Urine Ketones Neg Urine Blood Neg Urine Nitrite Neg Urine Bilirubin Neg Urine Urobilinogen < 2.0 Ur Leukocyte Esterase Neg Urine WBC (Auto) < 1.0 Urine RBC (Auto) 1.0 - Radiology Data Radiology results: report reviewed (CT abdomen pelvis), image reviewed (CT abdomen pelvis) CT ABDOMEN AND PELVIS WITH CONTRAST HISTORY: Upper abdominal pain, nausea vomiting diarrhea COMPARISON: None. TECHNIQUE: Axial CT images were obtained through the abdomen and pelvis after 100 cc of IV contrast. Sagittal and coronal reformatted images. All CT scans at this location are performed using CT dose reduction for ALARA by means of automated exposure control. FINDINGS: CT ABDOMEN: Lung Bases: Clear. Liver: No significant abnormality. Biliary: No significant abnormality. Spleen: No significant abnormality. Unenlarged. Pancreas: No significant abnormality. Adrenals: No significant abnormality. Kidneys: Solitary bilateral renal stones are identified measuring 3-4 mm. The kidneys and collecting systems are unremarkable otherwise. No ureteral stones or hydronephrosis is detected. Lymphatics: No lymphadenopathy. Vasculature: No significant abnormality. Bowel/Peritoneum: No significant abnormality. No free air. No free fluid. Normal appendix. CT PELVIS: : No significant abnormality. Osseous Structures: No significant abnormality. Additional Findings: None IMPRESSION: No acute inflammatory process. No clear explanation for upper abdominal pain, nausea, vomiting and diarrhea. Bilateral renal stones. No obstruction. Signer Name: Irineo Womack Jr, MD Signed: 09/28/2020 2:35 PM Workstation Name: [id number] - Differential Diagnosis Gastroenteritis, partial small bowel obstruction, Critical care attestation.: If time is entered above; I have spent that time in minutes in the direct care of this critically ill patient, excluding procedure time. ED Disposition Clinical Impression: Acute abdominal pain, Nausea vomiting and diarrhea Disposition: TO HOME OR SELFCARE Is pt being admited?: No Does the pt Need Aspirin: No Condition: Stable Instructions: Nausea and Vomiting, Adult, [id number], Diarrhea, Adult Additional Instructions: Return to the emergency department should you develop worsening symptoms, inability to tolerate food or liquids, high fever or any other concerns Prescriptions: Famotidine [Pepcid] 20 mg PO BID #20 tablet traMADoL [Ultram] 50 mg PO Q6HR PRN #10 tablet PRN Reason: Pain Ondansetron [Zofran ODT TAB] 8 mg PO Q8HR #20 tab.[email or web address] Referrals: PRIMARY CARE, [Primary Care Provider] - 3-5 Days RICHI SOTO MD [Staff Physician] - 3-5 Days Time of Disposition: 15:42
[2020-09-28 12:27] LABS: Total Cells Counted 100
[2020-09-28 12:53] LABS: Platelet Estimate Consistent w Auto; RBC Morphology Normal
[2020-09-28 13:50] LABS: Bilirubin,Urine NEG (Negative); Blood,Urine NEG (Negative); Color,Urine Colorless (Yellow); Protein,Urine <15 mg/dL mg/dL (Negative); Urobilinogen,Urine < 2.0 mg/dL (<2.0); WBC,Urine < 1.0 /HPF (0.0-6.0)
--- NOTE | 2020-09-28 15:40 | Cat Scan Report ---
CT ABDOMEN AND PELVIS WITH CONTRAST HISTORY: Upper abdominal pain, nausea vomiting diarrhea COMPARISON: None. TECHNIQUE: Axial CT images were obtained through the abdomen and pelvis after 100 cc of IV contrast. Sagittal and coronal reformatted images. All CT scans at this location are performed using CT dose re duction for ALARA by means of automated exposure control. FINDINGS: CT ABDOMEN: Lung Bases: Clear. Liver: No significant abnormality. Biliary: No significant abnormality. Spleen: No significant abnormality. Unenlarged. Pancreas: No significant abnormality. Adrenals: No significant abnormality. Kidneys: Solitary bilateral renal stones are identified measuring 3-4 mm. The kidneys and collecting systems are unremarkable otherwise. No ureteral stones or hydronephrosis is detected. Lymphatics: No lymphadenopathy. Vasculature: No significant abnormality. Bowel/Peritoneum: No significant abnormality. No free air. No free fluid. Normal appendix. CT PELVIS: : No significant abnormality. Osseous Structures: No significant abnormality. Additional Findings: None IMPRESSION: No acute inflammatory process. No clear explanation for upper abdominal pain, nausea, vomiting and di arrhea. Bilateral renal stones. No obstruction. Signer Name: Irineo Womack Jr, MD Signed: 09/28/2020 3:35 PM Workstation Name: [id number]
[2020-09-28 16:15] VITALS: BP 149/89
== END 2020-09-28 15:55 | disposition home or self-care (01) ==
LOC: ED 09:37
DX: R10.9 Unspecified abdominal pain (principal); R11.2 Nausea with vomiting, unspecified; R19.7 Diarrhea, unspecified; E11.9 Type 2 diabetes mellitus without complications; F17.200 Nicotine dependence, unspecified, uncomplicated; F12.10 Cannabis abuse, uncomplicated; Z79.899 Other long term (current) drug therapy
CPT/HCPCS: 36415; 74177; 80048; 80076; 81001; 82805; 82962; 83690; 85007; 85025; 96361; 96374; 99284; J2405; J7030; Q9967

== ENCOUNTER 2021-06-07 09:33 | Emergency (ER) | payer SELFPAY ==
[2021-06-07] MEDS ORDERED: ASPIRIN 325 MG TAB PO ONE (10:40)
--- NOTE | 2021-06-07 10:42 | Emergency Department Report ---
ED Chest Pain HPI - General Chief Complaint: Chest Pain Stated Complaint: SHOULDER CHEST PAINS LT Time Seen by Provider: 06/07/21 10:01 Source: patient Mode of arrival: Ambulatory Limitations: No Limitations - History of Present Illness Initial Comments: 35-year-old male, history of diabetes, TIA, presents to ED with chest pain since this morning. Patient reports left-sided chest pain and left shoulder pain, described as tightness, upon waking this morning. He denies any associated shortness of breath, nausea or vomiting, diaphoresis, leg pain or swelling. Patient denies any aggravating or alleviating factors. Patient states pain is improving compared to earlier this morning. Patient reports tobacco use, denies drug use. MD Complaint: chest pain -: This morning Onset: during rest Pain Location: left chest Pain Radiation: LUE Severity: moderate Quality: tightness Consistency: constant, other (Improving) Improves With: nothing Worsens With: nothing re: denies: nausea, vomting, diaphoresis, dyspnea Other Symptoms: denies: cough, fever, syncope, leg swelling Treatments Prior to Arrival: none - Related Data Previous Rx's Medication Instructions Recorded Last Taken Type Aspirin 325 mg PO QDAY #30 tablet 09/13/17 Unknown Rx Glimepiride [Amaryl] 4 mg PO QAM #60 tablet 09/13/17 Unknown Rx Lisinopril 20 mg PO DAILY #30 09/13/17 Unknown Rx Lovastatin [Altoprev] 20 mg PO QPM #30 tab.er.24h 09/13/17 Unknown Rx metFORMIN 1,000 mg PO BID #60 09/13/17 06/07/21 Rx 1000 mg Famotidine [Pepcid] 20 mg PO BID #20 tablet 09/28/20 Unknown Rx Ondansetron [Zofran ODT TAB] 8 mg PO Q8HR #20 tab.rapdis 09/28/20 Unknown Rx traMADoL [Ultram] 50 mg PO Q6HR PRN #10 tablet 09/28/20 Unknown Rx Allergies Allergy/AdvReac Type Severity Reaction Status Date / Time No Known Allergies Allergy Verified 05/30/13 05:19 Heart Score - HEART Score History: Slightly suspicious EKG: Non-specific Age: < 45 Risk factors: > 3 risk factors or hx of atherosclerotic disease Troponin: < normal limit HEART Score: 3 - EKG Read Time Time EKG Completed: 09:53 EKG Read Time: 10:00 ED Review of Systems ROS: Stated complaint: SHOULDER CHEST PAINS LT Other details as noted in HPI Comment: All other systems reviewed and negative Respiratory: denies: shortness of breath Cardiovascular: chest pain Gastrointestinal: denies: nausea, vomiting Musculoskeletal: other (Denies leg pain or swelling) ED Past Medical Hx - Past Medical History Previous Medical History?: Yes Hx Hypertension: No Hx Congestive Heart Failure: No Hx Diabetes: Yes Hx Seizures: No Hx Kidney Stones: Yes Hx Asthma: No - Surgical History Past Surgical History?: Yes - Social History Smoking Status: Current Some Day Smoker (1 pack/day) Substance Use Type: None (Denies illicit drug use) - Medications Home Medications: Home Medications Medication Instructions Recorded Confirmed Last Taken Type Aspirin 325 mg PO QDAY #30 tablet 09/13/17 Unknown Rx Glimepiride [Amaryl] 4 mg PO QAM #60 tablet 09/13/17 Unknown Rx Lisinopril 20 mg PO DAILY #30 09/13/17 Unknown Rx Lovastatin [Altoprev] 20 mg PO QPM #30 tab.er.24h 09/13/17 Unknown Rx metFORMIN 1,000 mg PO BID #60 09/13/17 06/07/21 06/07/21 Rx 1000 mg Famotidine [Pepcid] 20 mg PO BID #20 tablet 09/28/20 Unknown Rx Ondansetron [Zofran ODT TAB] 8 mg PO Q8HR #20 tab.rapdis 09/28/20 Unknown Rx traMADoL [Ultram] 50 mg PO Q6HR PRN #10 tablet 09/28/20 Unknown Rx ED Physical Exam - General Limitations: No Limitations General appearance: alert, in no apparent distress - Head Head exam: Present: atraumatic, normocephalic - Eye Eye exam: Present: normal appearance, EOMI - ENT ENT exam: Present: mucous membranes moist - Neck Neck exam: Present: normal inspection - Respiratory Respiratory exam: Present: normal lung sounds bilaterally. Absent: respiratory distress - Cardiovascular Cardiovascular Exam: Present: regular rate, normal rhythm - GI/Abdominal GI/Abdominal exam: Present: soft. Absent: distended, tenderness - Extremities Exam Extremities exam: Present: normal inspection. Absent: pedal edema, calf tenderness - Neurological Exam Neurological exam: Present: alert, oriented X3 - Psychiatric Psychiatric exam: Present: normal affect, normal mood - Skin Skin exam: Present: warm, dry, intact, normal color ED Course Vital Signs 06/07/21 06/07/21 09:44 10:41 Temperature 98.8 F 97.7 F Pulse Rate 87 78 Respiratory 18 15 Rate Blood Pressure 136/89 Blood Pressure 135/81 [Left] O2 Sat by Pulse 99 99 Oximetry ED Medical Decision Making - Lab Data Result diagrams: 06/07/21 10:22 06/07/21 10:22 - EKG Data -: EKG Interpreted by Me EKG shows normal: sinus rhythm, axis, intervals, QRS complexes Rate: normal - EKG Data When compared to previous EKG there are: no significant change (compared to 08/2017) Interpretation: no acute changes, other (Inferior T wave inversions) - Radiology Data Radiology results: report reviewed, image reviewed - Medical Decision Making 35-year-old male presents to ED with chest pain. Patient reports pain is currently resolved. EKG shows some T wave inversions in the inferior leads that were also present compared to an EKG from 2018. Troponin negative x2. Chest x-ray normal. Patient information faxed to [facility] for urgent cardiology follow-up. He will be discharged at this time. Return precautions given. - Differential Diagnosis ACS, pneumonia, atypical chest pain Critical care attestation.: If time is entered above; I have spent that time in minutes in the direct care of this critically ill patient, excluding procedure time. ED Disposition Clinical Impression: Chest pain Disposition: 01 HOME / SELF CARE / HOMELESS Is pt being admited?: No Condition: Stable Instructions: Nonspecific Chest Pain, Adult Referrals: WILLY GUERRERO MD [Primary Care Provider] - 3-5 Days [facility] [Provider Group] - 3-5 Days PABLO PICHARDO MD [Staff Physician] - 3-5 Days Time of Disposition: 13:58
--- NOTE | 2021-06-07 10:51 | XRay Report ---
CHEST 1 VIEW 06/07/2021 10:13 AM INDICATION / CLINICAL INFORMATION: Chest pain. COMPARISON: None available. FINDINGS: SUPPORT DEVICES: None. HEART / MEDIASTINUM: The heart size and pulmonary vasculature are normal. The aorta is normal in cielo eduar. LUNGS / PLEURA: No significant pulmonary or pleural abnormality. No pneumothorax. ADDITIONAL FINDINGS: No significant additional findings. IMPRESSION: No acute findings. Signer Name: Nikko Khan MD Signed: 06/07/2021 10:46 AM Workstation Name: [id number]
[2021-06-07 11:07] LABS: Basophils % (Auto) 0.4 % (0.0-1.8); Eosinophils # (Auto) 0.3 K/mm3 (0.0-0.4); Eosinophils % (Auto) 2.8 % (0.0-4.3); Hematocrit 45.8 % (35.5-45.6); Hemoglobin 14.9 gm/dl (11.8-15.2); Lymphocytes # (Auto) 4.4 K/mm3 (1.2-5.4); Lymphocytes % (Auto) 44.7 % (13.4-35.0); Mean Corpuscular HGB Conc 33 % (32-34); Mean Corpuscular Volume 91 fl (84-94); Monocytes # (Auto) 0.8 K/mm3 (0.0-0.8); Monocytes % (Auto) 8.1 % (0.0-7.3); Platelet Count 274 K/mm3 (140-440); Red Blood Count 5.04 M/mm3 (3.65-5.03); Red Cell Distribution Width 13.7 % (13.2-15.2)
[2021-06-07 11:19] LABS: INR 0.95 (0.87-1.13)
[2021-06-07 11:20] LABS: Partial Thromboplastin Time 30.3 Sec. (24.2-36.6)
[2021-06-07 11:21] LABS: BUN/Creatinine Ratio 15; Blood Urea Nitrogen 12 mg/dL (9-20); Hemolysis Index 7
--- NOTE | 2021-06-07 13:13 | Electrocardiograph Report ---
[facility] Test Date: 2021-06-07 Test Time: 09:53:03 Pat Name: GUILLERMINA BRITO Department: Room: Gender: M Senior Estimator: SIXTO : 1985 Requested By: DIDIER CISNEROS Order Number: [id number] Reading MD: Daina Haddad Measurements Intervals [place] Rate: 73 P: 63 MI: 152 QRS: 33 QRSD: 83 T: -3 QT: 375 QTc: 413 Interpretive Statements Sinus rhythm Probable left atrial enlargement Poor R wave progression No previous ECG available for comparison Electronically Signed On 06-07-2021 13:12:52 EST by Daina Haddad
[2021-06-07 14:36] VITALS: BP 127/84
== END 2021-06-07 14:38 | disposition home or self-care (01) ==
LOC: ED 09:33
DX: R07.89 Other chest pain (principal); M25.512 Pain in left shoulder; F17.210 Nicotine dependence, cigarettes, uncomplicated; Z79.82 Long term (current) use of aspirin; Z79.899 Other long term (current) drug therapy
CPT/HCPCS: 36415; 71045; 80048; 84484; 85025; 85610; 85730; 93005; 99283